=== PATIENT | male | born 1965 | race Caucasian/White ===

== ENCOUNTER 2019-11-05 06:50 | Emergency (ER) | payer MEDICAID ==
[~2019-11-05] VITALS: Ht 177.8 cm; Wt 106.0 kg
[~2019-11-05 06:50] MED LIST: CLON1TAB PO; DESV50TA PO; GABA600T7 PO; ZOLP10TA PO
--- NOTE | 2019-11-05 07:13 | NUR ---
pt brought in by remsa, tangential speech and thoughts of grandious. states he has a plan to end his life, but that "it's nobody's business" and that he would be able to follow through with the plan because he's "here on earth." johnny and blanca daughter each made an attempts to end her their own life within the last week. vss, no signs of distress, pt cooperative, remains in view of the sitter.
[2019-11-05] MEDS ORDERED: ESCI20TA10 PO (07:27)
--- NOTE | 2019-11-05 07:28 | NUR ---
pt reported 5 years ago he took "a whole month's worth" of ambien because he "didn't want to wake up again." states "i've been angry ever since because i woke up, it's not that i think about suicide it's that i always think about it and have to remind myself to stop."
--- NOTE | 2019-11-05 07:51 | NUR ---
PA EXAM COMPLETED. PT REFERS TO HIS TEAM, WHICH SEEMS TO MEAN DIFFERENT FORMS OF HIM A TEAM. PT TOLD PA THAT HE WOULD ASPHYXIATE HIMSELF. PT IN ROOM WITH SUPPLIES SECURED AND IN DIRECT VIEW OF PT. PT'S BELONGINGS IN LOCKER.
--- NOTE | 2019-11-05 08:00 | NUR ---
SON MIHAELA DUMONT CALLED TO CHECK ON WELFARE OF FATHER. TELEPHONE NUMBER
--- NOTE | 2019-11-05 08:06 | NUR ---
PT LAYING ON THE FLOOR FOR "ISADORA HORSE" IN HIS BACK, REQUESTED ICE, GIVEN TO PATIENT. MD AT BEDSIDE.
[2019-11-05 08:15] LABS: BASOPHILS % (AUTO) 1 % (0-1); EOSINOPHILS # (AUTO) 0.11 x10^3/uL (0-0.4); EOSINOPHILS % (AUTO) 1 % (1-7); LYMPHOCYTES # (AUTO) 2.56 x10^3/uL (1-3.4); LYMPHOCYTES % (AUTO) 28 % (22-44); MD NO; MEAN CORPUSCULAR HEMOGLOBIN 30.5 pg (27.5-34.5); MEAN CORPUSCULAR HGB CONC 33.7 g/dL (33.2-36.2); MEAN CORPUSCULAR VOLUME 90.5 fL (81-97); MEAN PLATELET VOLUME 7.8 fL (7.4-10.4); MONOCYTES # (AUTO) 0.76 x10^3/uL (0.2-0.8); MONOCYTES % (AUTO) 8 % (2-9); NEUTROPHILS # (AUTO) 5.69 x10^3/uL (1.8-6.8); NEUTROPHILS % (AUTO) 62 % (42-75); PLATELET COUNT 262 x10^3/uL (130-400); RED BLOOD COUNT 5.45 x10^6/uL (4.38-5.82); RED CELL DISTRIBUTION WIDTH 12.9 % (9.4-14.8)
[2019-11-05] MEDS ORDERED: ZIPRASIDONE 20 MG INJ IM ONE ×2 (08:25→09:00)
--- NOTE | 2019-11-05 08:25 | NUR ---
PT PACING AROUND IN ROOM. PULLED DOWN CURTAIN. PULLING ON POLE OF GURNEY SEEING IF IT CAN COME OFF. PT STATES HE IS FEELING HOMICIDAL AND SUICIDAL AND THAT HE WILL TAKE THE POLE OFF THE GURNEY AND USE IT OR BREAK THE GLASS OF THE WINDOWS AND DOORS. PT ASKING TO BE RESTRAINED. MD AWARE AND TO BE MEDICATED.
[2019-11-05 08:26] LABS: AMPHETAMINE SCREEN, URINE Negative (Negative); BARBITURATE SCREEN, URINE Negative (Negative); BENZODIAZEPINE SCREEN, URINE Negative (Negative); CANNABINOID SCREEN, URINE Positive (Negative); COCAINE SCREEN, URINE Negative (Negative); METHADONE SCREEN, URINE Negative (Negative); OPIATE SCREEN, URINE Negative (Negative)
[2019-11-05 08:27] LABS: ALANINE AMINOTRANSFERASE 60 U/L (12-78); ALBUMIN 4.5 g/dL (3.4-5.0); ANION GAP 6 mmol/L (5-15); CALCIUM 9.6 mg/dL (8.5-10.1); CHLORIDE 104 mmol/L (98-107); CREATININE 1.31 mg/dL (0.7-1.3); SALICYLATE LEVEL < 1.7 mg/dL (2.8-20.0)
[2019-11-05 08:28] LABS: ALKALINE PHOSPHATASE 88 U/L (45-117); BILIRUBIN,TOTAL 0.6 mg/dL (0.2-1.0); TOTAL PROTEIN 8.1 g/dL (6.4-8.2)
--- NOTE | 2019-11-05 09:04 | NUR ---
AFTER RECEIVING GEODON PT NOW LYING IN BED WITH EYES CLOSED. PT STATED THAT HE HAD NOT SLEPT IN MANY NIGHTS AND WANTS TO SLEEP. REMAINS IN VIEW OF SITTER.
--- NOTE | 2019-11-05 10:19 | NUR ---
BRODERICK RN: PT CURRENTLY SLEEPING ON YOHANA. PT AWAKENS TO NAME BEING CALLED. PT APPEARS CALM AND COOPERATIVE AT THIS TIME. SKIN PWD. RESP EVEN AND UNLABORED. GARAGE DOORS DOWN IN ROOM. SITTER AT DOORSIDE.
--- NOTE | 2019-11-05 11:31 | NUR ---
pt laying in bed, eyes closed, respirations even and unlabored, snoring heard.
--- NOTE | 2019-11-05 11:54 | NUR ---
pt remains sleeping, in direct view of sitter.
--- NOTE | 2019-11-05 12:15 | NUR ---
pt laying in bed, respirations even and unlabored, snoring heard. remains in sight of the sitter.
--- NOTE | 2019-11-05 12:42 | NUR ---
gave report to dennis poole from [place], admitting md will be dr. hancock.
[2019-11-05 15:06] VITALS: BP 120/85
== END 2019-11-05 15:10 ==
LOC: ED 09:51
DX: R45.851 Suicidal ideations (principal); F19.159 Other psychoactive substance abuse with psychoactive substance-induced psychotic disorder, unspecified; F31.4 Bipolar disorder, current episode depressed, severe, without psychotic features
CPT/HCPCS: 36415; 80053; 80307; 85025; 96372; 99285; J3486

== ENCOUNTER → 2021-01-20 | Outpatient (CLI) | payer OTHER ==
[~2021-01-20] MED LIST changes: +ESCI20TA10 PO
== END | disposition home or self-care (01) ==
LOC: CVU 15:30
PROVIDERS: ATTEND Physician Assistant
DX: I34.0 Nonrheumatic mitral (valve) insufficiency (principal); E78.5 Hyperlipidemia, unspecified; I51.5 Myocardial degeneration
CPT/HCPCS: 93306; 93356